=== PATIENT | female | born 1960 | race Caucasian/White ===

== ENCOUNTER 2019-10-05 10:58 | Emergency (ER) | payer BC, SELFPAY ==
[2019-10-05 11:30] VITALS: BP 100/69; PULSE 96; RESP 16; TEMP 37.2; O2SAT 96
--- NOTE | 2019-10-05 11:45 | PC.NURSE ---
Wrong nurse signed into charting system. JULIAN Beaver was the nurse during patients ER visit.
[2019-10-05 11:56] VITALS: BP 111/25; PULSE 94
--- NOTE | 2019-10-05 11:57 | ECG_ITS ---
Measurements Intervals [place] Rate: 86 P: 26 DC: 154 QRS: 8 QRSD: 94 T: 30 QT: 388 QTc: 466 Interpretive Statements SINUS RHYTHM INCOMPLETE RIGHT BUNDLE BRANCH BLOCK LOW QRS VOLTAGE IN PRECORDIAL LEADS BORDERLINE T WAVE ABNORMALITY- ANTERIOR LEADS BORDERLINE ECG Electronically Signed On 10-05-2019 12:16:06 CDT by Silverio Blankenship D.O.
[2019-10-05 11:58] VITALS: BP 128/105; PULSE 93
[2019-10-05 12:00] VITALS: BP 124/44; PULSE 81
[2019-10-05 12:18] LABS: Basophils Absolute Auto 0.03 K/mm3 (0.00-0.10); Basophils Percent Auto 0.5 % (0.0-1.0); Eosinophils Absolute Auto 0.38 K/mm3 (0.02-0.50); Eosinophils Percent Auto 5.8 % (1.0-6.0); Hematocrit 36.2 % (35.0-49.0); Hemoglobin 11.4 g/dL (12.0-15.0); Immature Granulocyte Absolute 0.02 K/mm3 (0.00-0.00); Immature Granulocyte Percent A 0.3 % (0.0-0.0); Lymphocytes Absolute Auto 1.47 K/mm3 (1.10-4.50); Lymphocytes Percent Auto 22.4 % (18.0-42.0); Mean Corpuscular HGB Conc 31.5 g/dL (32.0-36.0); Mean Corpuscular Volume 101.7 fL (78.0-102.0); Mean Platelet Volume 10.2 fl (9.2-11.8); Monocytes Absolute Auto 0.61 K/mm3 (0.10-0.90); Monocytes Percent Auto 9.3 % (2.0-11.0); Neutrophils Absolute Auto 4.1 K/mm3 (1.7-7.2); Neutrophils Percent Auto 61.7 % (50.0-70.0); Platelet Count Result 164 K/mm3 (150-420); Red Blood Count 3.56 M/mm3 (4.20-5.40); Red Cell Distribution Width 13.7 % (11.6-14.4); White Blood Count 6.6 K/mm3 (4.8-10.8)
[2019-10-05 12:37] LABS: BNP 5.7 pg/mL (0-100)
[2019-10-05 12:39] LABS: Alanine Aminotransferase 19 U/L (14-59); Albumin Level 3.2 g/dL (3.4-5.0); Alkaline Phosphatase 107 U/L (46-116); Anion Gap 10.3 mmol/L (7-16); Aspartate Amino Transferase 19 U/L (15-37); Bilirubin,Total 0.2 mg/dL (0.00-1.00); Blood Urea Nitrogen 20 mg/dL (7-18); Calcium 8.6 mg/dL (8.5-10.1); Carbon Dioxide 28 mmol/L (21-32); Chloride 107 mmol/L (98-108); Estimated CRCL calculation 36 ml/min; Estimated Glomerular Filt Rate 39; Glucose 118 mg/dL (70-99); Osmolality Calculated 295 mOsm/kg (285-295); Potassium 4.3 mmol/L (3.5-5.1); Sodium 141 mmol/L (136-145); Total Protein 7.4 g/dL (6.4-8.2)
[2019-10-05 12:40] LABS: Ammonia < 10 umol/L (11-32); Ethanol < 3 mg/dL (0-6); Troponin I < 0.02 ng/mL (0.00-0.056)
--- NOTE | 2019-10-05 12:49 | ED.GENADULT ---
HPI - General Adult General Chief complaint: Dizziness Stated complaint: elevated blood pressure/ Dizzy History of Present Illness HPI narrative: Kala is a 59F with a PMH of unknown psychiatric illness, CKDIII, GERD, irritable bowel, abnormal brain MRI, and neuropathy and presented to the ED with dizziness. She has been feeling like she is going to pass out for the last 6 months. It has been gradually getting worse, but especially over the last 2 days. It is worse when she moves to fast or sharply moves her head. Denies trauma, vertigo, medication changes, current CP, syncope, N/V/D, headache and dysuria. Related Data Home Medications Medication Instructions Recorded Confirmed azelastine 2 spray INTRANASAL DAILY 10/05/19 10/05/19 clonazepam 1 mg PO HS 10/05/19 10/05/19 dextroamphetamine-amphetamine 30 mg PO DAILY 10/05/19 10/05/19 [Adderall XR] duloxetine 30 mg PO HS 10/05/19 10/05/19 famotidine 40 mg PO HS 10/05/19 10/05/19 fluoride (sodium) [Denta 5000 Plus] 1 applic DENTAL PRN 10/05/19 10/05/19 gabapentin 300 mg PO TID 10/05/19 10/05/19 mirabegron [Myrbetriq] 50 mg PO DAILY 10/05/19 10/05/19 nortriptyline 40 mg PO HS 10/05/19 10/05/19 oxycodone-acetaminophen 1 tablet PO Q4-5H PRN 10/05/19 10/05/19 potassium chloride [Klor-Con M20] 20 meq PO DAILY 10/05/19 10/05/19 topiramate 50 mg PO BID 10/05/19 10/05/19 ziprasidone HCl 80 mg PO BID 10/05/19 10/05/19 Allergies Allergy/AdvReac Type Severity Reaction Status Date / Time amitriptyline AdvReac Unknown Verified 10/05/19 13:42 clarithromycin [From Biaxin] AdvReac Unknown Verified 10/05/19 13:42 Sulfa (Sulfonamide AdvReac Fever Verified 10/05/19 13:42 Antibiotics) Review of Systems Constitutional: Constitutional: Denies chills, Denies fever(s) and Denies weakness Eyes: Eyes: Reports no additional eye complaints ENT: Reports system reviewed and no additional complaints, except as documented Cardiovascular: Cardiovascular: Denies chest pain, Reports rapid heart rate and Denies radiating jaw, neck or arm pain Respiratory: Respiratory: Reports no additional respiratory complaints Gastrointestinal: Gastrointestinal: Reports no additional gastrointestinal complaints Genitourinary: Genitourinary: Reports no additional female genitourinary complaints Musculoskeletal: Musculoskeletal: Reports no additional musculoskeletal complaints Integumentary/Breasts: Skin/Breast: Reports system reviewed and no additional complaints, except as docu Neurologic: Reports as per HPI Psychiatric: Psychiatric: Reports no additional psychiatric complaints Endocrine: Endocrine: Reports no additional endocrine complaints Hematologic/Lymphatic: Hematologic/Lymphatic: Reports no additional hematologic/lymphatic complaints Allergic/Immunologic: Allergic/Immunologic: Reports no additional allergic/immunologic complaints Exam Const: General: no acute distress and alert Orientation/consciousness: patient oriented x3 Limitations: No altered mental status HENMT: Other: Normocephalic, atraumatic dry mucous membranes Eyes: Conjunctivae: conjunctivae normal Pupils: Equal, round and reactive pupils present Neck: Neck: normal visual inspection Chest: Chest palpation & inspection: normal inspection of the chest Resp: Effort & Inspection: normal respiratory effort Auscultation: clear to auscultation bilaterally Cardio: Rate: regular rate Rhythm: regular rhythm Heart sounds: no murmurs Other: no edema GI: GI Palp: Yes Soft to palpation, No Tenderness to palpation present (GI) and No Guarding due to palpation present (GI) Skin: General skin exam: normal color Rashes: no rashes Other: slight skin tenting Neuro: General: patient oriented x3 and moves all extremities Other: normal finger to nose, CNII-XII intact as tested, normal rapid alternating movements, horizontal nystamus to the left, normal head impulse and test of skew. Extrem: General: normal to inspection Psych: M
[2019-10-05 12:51] LABS: Add Urine Microscopic? YES; Appearance Urine Clear (Clear); Bilirubin Urine Negative (Negative); Blood Urine Negative (Negative); Color Urine Yellow (Yellow); Glucose Urine UA Negative (Negative); Ketones Urine Negative (Negative); Nitrate Urine Positive (Negative); Protein Urine Negative (Negative); Urobilinogen Urine 0.2 mg/dL (0.2-1.0)
[2019-10-05] MEDS: SODIUM CHLORIDE 0.9% IV 1,000 ML 999 ML IV CONT (12:55)
[2019-10-05 12:57] LABS: Bacteria Urine 4+ /hpf; RBC Urine 0-2 /hpf (0-2); Squamous Epithelial Cell Urine Few /hpf (Few)
[2019-10-05 12:59] LABS: Leukocyte Esterase Ur 1+ (Negative)
[2019-10-05 13:04] LABS: Amphetamine Screen Urine Positive (Negative); Barbiturate Screen Urine Negative (Negative); Benzodiazepines Screen Urine Negative (Negative); Cannabinoid Screen Urine Positive (Negative); Cocaine Screen Urine Negative (Negative); Methadone Screen Urine Negative (Negative); Opiate Screen Urine Negative (Negative); Phencyclidine Screen Urine Negative (Negative)
[2019-10-05 13:58] VITALS: BP 100/76; PULSE 83; RESP 14; O2SAT 100
== END 2019-10-05 14:11 | disposition home or self-care (01) ==
PROVIDERS: Emergency Provider Family Medicine; PCP Family Medicine
DX: N39.0 Urinary tract infection, site not specified (principal); E86.0 Dehydration; Z79.899 Other long term (current) drug therapy; N18.3 Chronic kidney disease, stage 3 (moderate)
CPT/HCPCS: 36415; 80053; 80307; 81001; 82140; 83880; 84484; 85025; 93005; 96360; 99283; J7030

== ENCOUNTER 2023-06-25 07:58 | Outpatient (CLI) | payer BC, SELFPAY ==
--- NOTE | ~2023-06-25 | DEXA_ITS ---
? Bone Density Report? Name:? MITCHELL STEINBERGICIMonroe Garcia Patient ID:??? [id number] Age:? 63 Sex:? Female Ethnicity:? White Date of : 1960 Indication: postmenopausal; screening for osteoporosis; height loss; cancer; hysterectomy; Referring Provider: LASHA TAI Study: Bone densitometry was performed. Exam Date: June 25, 2023 Accession number: [id number] Bone Density: Region? BMD??? T-score? Z-score?? Classification AP Spine(L2, L3, L4)? 1.129??? 0.5?2.1? Normal Femoral Neck (Left)? 0.754?? -0.9? 0.6? Normal Total Hip (Left)? 0.941??? 0.0?1.1? Normal Femoral Neck (Right)? 0.745?? -0.9? 0.5? Normal Total Hip (Right)? 0.981??? 0.3? 1.4? Normal Femoral Neck Mean? 0.749?? -0.9? 0.5? Normal Total Hip Mean? 0.961??? 0.2? 1.3? Normal World Health Organization criteria for BMD impression classify patients as: Normal (T-score at or above -1.0), Osteopenia (T-score between -1.0 and -2.5), or Osteoporosis (T-score at or below -2.5). 10-year Fracture Risk: FRAX not reported because: ? All T-scores for Spine Total, Hip Total, Femoral Neck at or above -1.0 Clinical Information Provided by Patient: Has used the following medications: Vitamin D, Calcium Has the following medical conditions: Cancer, Hysterectomy Patient maximum height was 62 Menopause Age: 28 No regular weight bearing exercise Drinks caffeinated beverages Onset of menses at age 14 Number of children 2 Impression: The patient has normal bone mass. Discussion: BONE DENSITY IS ABOVE THE MINIMUM DESIRABLE LEVEL AT ALL SKELETAL SITES TESTED. This patient?s bone mineral density is above the minimum desirable level (T- score -1.0 or better) at all sites measured. The patient should follow a healthful lifestyle (good nutrition with adequate calcium and vitamin D, and appropriate weight-bearing exercise). Follow-Up: Consider repeating this study in 5 years or sooner if there is some new clinical indication. Reported by: Dr. Aamir Garcia on 43:04:00 PM. MICHELLE
== END 2023-06-25 07:59 | disposition home or self-care (01) ==
LOC: CHSIMG 08:06
PROVIDERS: PCP Family Medicine; Visit Provider Internal Medicine Hematology
DX: Z78.0 Asymptomatic menopausal state (principal)
CPT/HCPCS: 77080

== ENCOUNTER 2023-12-17 07:34 | Outpatient (CLI) | payer BC, SELFPAY ==
--- NOTE | ~2023-12-17 | MR_ITS ---
MRI of the brain Clinical History: Headache, breast cancer Technique: Axial and sagittal T1-weighted images were acquired. These were followed by axial T2-weigh deo, diffusion weighted, gradient, and FLAIR images. Following intravenous administration of 14 cc Mu ltiHance gadolinium, T1-weighted fat-sat imaging was performed in the axial and coronal planes. Findings: No acute infarct, intracranial hemorrhage or mass lesion seen. There is moderate right chronometer assembler and adjuster cheikh microvascular ischemic change in the periventricular white matter bilaterally. Ventricles and subarachnoid spaces are unremarkable. Orbits are unremarkable. Paranasal sinuses and m astoid air cells are essentially clear. Major intracranial flow voids appear intact. Sagittal midline structures are intact. No abnormal postcontrast enhancement identified. IMPRESSION: No acute infarct, intracranial hemorrhage, or mass lesion. Moderate chronic microvascular ischemic change. Reviewed, dictated and finalized at location .
== END 2023-12-17 07:35 | disposition home or self-care (01) ==
LOC: CHSIMG 07:38
PROVIDERS: PCP Family Medicine; Visit Provider Internal Medicine Hematology
DX: C50.212 Malignant neoplasm of upper-inner quadrant of left female breast (principal); R51.9 Headache, unspecified
CPT/HCPCS: 70553; A9577